=== PATIENT | male | born 1970 | race Two or more races ===

== ENCOUNTER 2024-02-29 23:06 | Emergency (ER) | payer OTHER ==
[~2024-02-29] VITALS: Ht 180.3 cm; Wt 72.6 kg
[2024-03-01] MEDS ORDERED: METHYLPREDNISOLONE SOD SUCC 125 MG VIAL IM STA (00:48)
[2024-03-01] MEDS ORDERED: ORPHENADRINE CITRATE 30 MG/ML AMPUL IM STA (00:49)
[2024-03-01] MEDS ORDERED: ORPHENADRINE CITRATE 30 MG/ML AMPUL ONE (00:52)
[2024-03-01] MEDS ORDERED: METHYLPREDNISOLONE SOD SUCC 125 MG VIAL ONE (00:53)
== END 2024-03-01 01:04 ==
LOC: ER 23:06
DX: M54.50 Low back pain, unspecified (principal); Z88.1 Allergy status to other antibiotic agents
CPT/HCPCS: 96372; 99282; J2360; J3490